=== PATIENT | female | born 1945 | race Caucasian/White ===

== ENCOUNTER → 2016-09-06 | Outpatient (CLI) | payer MEDICARE | END | disposition home or self-care (01) | LOC: NM 12:27 | PROVIDERS: ATTEND Internal Medicine Pulmonary Disease | DX: R30.0 Dysuria (principal) | CPT/HCPCS: 93017 ==

== ENCOUNTER → 2018-07-24 | Outpatient (CLI) | payer MEDICARE, BC ==
--- NOTE | 2018-07-24 17:58 | KCIC ---
MRI of the cervical spine without contrast 07/24/2018 CLINICAL HISTORY: Neck pain which radiates down the right arm. Right arm numbness for the last year. TECHNIQUE: Unenhanced T1-weighted and T2-weighted sagittal and axial and inversion recovery sagittal images of the lumbar spine were obtained. FINDINGS: Mild lateral curvature of the cervical spine is seen convex to the right. There is straightening of the normal cervical lordosis. Degenerative signal changes are seen involving all of the disks of the cervical spine. Degenerative signal changes are seen within the marrow surrounding these discs. Loss of height of the C3-4, C4-5 and C5-6 discs is noted. No area of abnormal signal intensity is seen involving the cervical spinal cord. At the C2-3 disc space there is a minimal generalized disc bulge. Degenerative changes are seen involving the uncovertebral and facet joints bilaterally. These findings do not result in significant central spinal canal or neural foraminal stenosis. At the C3-4 disc space there is a mild to moderate generalized disc bulge. Degenerative changes are seen involving the uncovertebral and facet joints bilaterally. These findings efface the anterior CSF without resulting in significant central spinal canal stenosis. Mild to moderate bilateral neural foraminal stenosis is seen. At the C4-5 disc space is a mild generalized disc bulge. Degenerative changes are seen involving the uncovertebral and facet joints bilaterally. These findings do not result in significant central spinal canal stenosis. Mild to moderate right greater than left neural foraminal stenosis is seen. At the C5-6 disc space there is a mild to moderate generalized disc bulge. Degenerative changes are seen involving the uncovertebral and facet joints bilaterally. These findings efface the anterior CSF resulting in mild central spinal canal stenosis without evidence of cord impingement. Moderate bilateral neural foraminal stenosis is seen. At the C6-7 disc space there is a mild to moderate generalized disc bulge. This is eccentric to the right. Degenerative changes are seen involving the uncovertebral and facet joints, right greater than left. These findings result in mild central spinal canal stenosis without evidence of cord impingement. Moderate to severe right neural foraminal stenosis is seen. The left neural foramen is patent. At the C7-T1 disc space there is a minimal generalized disc bulge. Degenerative changes are seen involving the facet joints bilaterally. These findings do not result in significant central spinal canal or neural foraminal stenosis. IMPRESSION: Degenerative changes are seen throughout the cervical spine. These findings result in mild central spinal canal stenosis at C5-6 and C6-7 without evidence of cord impingement. Multilevel neural foraminal stenosis of varying severity is seen as discussed above. Electronically signed by: Kan Long MD (07/24/2018 5:55 PM) [facility]
== END | disposition home or self-care (01) ==
LOC: KCIC MRI 13:38
PROVIDERS: ATTEND Physical Medicine & Rehabilitation
DX: M47.22 Other spondylosis with radiculopathy, cervical region (principal); M48.02 Spinal stenosis, cervical region; M50.11 Cervical disc disorder with radiculopathy, high cervical region; M51.24 Other intervertebral disc displacement, thoracic region
CPT/HCPCS: 72141

== ENCOUNTER → 2018-08-03 | Outpatient (CLI) | payer MEDICARE, BC ==
[~2018-08-03] MED LIST: CRESTOR10 MG PO; ESTR0.3T PO; FLUO40CA2 PO; IOHEXOL 180 MG/ML 10 ML VIAL. ONE; METF500T16 PO; METH500T7 PO; MONT10TA49 PO; MULT1TAB52 PO; OMEP20CA10 PO; ZOLP10TA4 PO; methylPREDNISolone ACETATE 40 MG/ML VIAL. ONE; methylPREDNISolone ACETATE 80 MG/ML VIAL. ONE
--- NOTE | 2018-08-03 22:03 | PAIN ---
DATE OF SERVICE: 08/03/2018 INITIAL CONSULTATION FOR PAIN CLINIC CHIEF COMPLAINT: Neck and right upper extremity pain. HISTORY OF PRESENT ILLNESS: This is a 73-year-old female who presents with history of pain in the base of the neck and right upper extremity for about 1 year, worse over the past 2-3 months or so, increasing without any specific injury or action that she is aware of, just getting worse over time. The patient reports it is in the base of the neck, right upper extremity, radiates into the shoulder posteriorly, into the anterior clavicle region as well as the side of the neck on the right side and into the arm in the biceps and forearm, mostly with some numbness and tingling in the thumb. The patient reports it is becoming worse with time. She is getting easily fatigued in the right arm, not losing any motor function completely, but finding difficult to do fine motor movements as well with the right hand. The patient reports the pain is now constant, throbbing, shooting, changes during the day with activity, worse with repetitive motions, tingling, numbness, radiating to the arm as well and the hand and the thumb on the right side and aching. The patient did have an MRI scan of the cervical spine showing degenerative changes throughout with mild central spinal canal stenosis at C5-C6 and C6-C7 without evidence of cord impingement with degenerative changes involving the facet joints, right greater than left at C6-C7 and moderate to severe right neural foraminal stenosis seen at C6-C7 as well, has moderate bilateral neural foraminal stenosis at C5-C6. The patient rates her disability rate from 0 to 10, 10 being the worst, is a 5 with family and home responsibilities, recreation, social activity and self-care, 3 with occupation, 4 with sexual behavior and 3 with life support activities. The patient has had physical therapy in the past as well as chiropractic treatment and exercise and reports that the chiropractic told her that he did not wish to further treat her neck as it was not helping. She is doing some stretching and strengthening on her own from physical therapy as well. All these helped to only a mild to moderate extent. The patient reports easy fatigability again, but no complete motor loss in the upper extremity and no symptoms on the left side. PAST MEDICAL HISTORY: Significant for arthritis, dizziness, hypertension, type 2 diabetes, skin cancers. PAST SURGICAL HISTORY: Includes cataract extraction in the left eye, fractured jaw, hysterectomy, tubal ligation, cholecystectomy, tonsillectomy, ganglion cyst removed and left knee surgery. CURRENT MEDICATIONS: Include methocarbamol, multivitamins, montelukast, metformin, zolpidem, estrogen, omeprazole, Crestor and fluoxetine. ALLERGIES: THE PATIENT IS ALLERGIC TO CODEINE. FAMILY HISTORY: Significant for no known conditions or diseases. SOCIAL HISTORY: The patient drinks alcohol about 1 or 2 drinks a week. Does not use any tobacco and does not smoke. Does not use any illegal, illicit or recreational drugs. She is , lives with her spouse and lives locally in [place], [place]. REVIEW OF SYSTEMS: The patient's review of systems is positive for those items mentioned in history of present illness. All systems reviewed and otherwise negative. It is complete, full and well documented on the patient's chart. PHYSICAL EXAMINATION: VITAL SIGNS: The patient's blood pressure is 142/70, pulse 81, respirations 18, temperature is 98.3 degrees Fahrenheit. Height is 5 feet 2 inches, weight is 163 pounds. GENERAL: The patient is awake, alert, oriented, appropriate, very pleasant demeanor. HEENT: Shows normocephalic, atraumatic. Extraocular movements are intact and symmetrical. Oral cavity shows mucous membranes moist and pink. Dentition intact. NECK: Shows anterior throat supple without palpable lymphadenopathy noted. Swallow reflex symmetrical. CHEST: Shows normal on inspection. Breath sounds are clear to auscultation bilaterally. HEART: Shows S1, S2 clear. No murmurs auscultated. ABDOMEN: Obese, soft, nontender, nondistended. No palpable organomegaly is noted. No rebound or guarding demonstrated. BACK: Shows spine grossly in the midline, normal appearing cervical lordotic curvature, thoracic kyphotic curvature and lumbar lordotic curvature. Cervical paraspinous muscle shows symmetrical on inspection, with palpation shows some moderate tenderness diffusely in the inferior aspect of the cervical paraspinous musculature, also into the right trapezius as well as even some tenderness into the right strap muscles, not on the left. The patient has good rotational motion with some moderate guarding with right lateral rotation, especially with extension of the cervical spine. The patient does report some pain in the base of the neck, but not radiating into the right arm, left is rotated past 45 degrees closer to 90 degrees without difficulty. Full forward flexion was performed without difficulty as well. The patient's upper extremities show deep tendon reflexes 2+ in the biceps and triceps tendons. Motor exam is 5/5 on the left and 4/5 on the right with k[place] maori strength, bicep and tricep flexion. Peripheral pulses are 2+ radial distribution. No peripheral edema is noted. Shoulder shrug is strong and intact without loss of strength on resistance, but some moderate pain reported in the right shoulder and into the lateral deltoid and bicep, this is true with abduction of the shoulder to 90 degrees as well, but no loss of strength on resistance. SKIN: Warm, dry, good turgor. No edema. No sores or rashes throughout. IMPRESSION: 1. This is a 73-year-old female with approximate 1-year history, worse over the past 3 months pain in the base of the neck, right upper extremity in a radicular fashion. 2. MRI scan of cervical spine as noted. 3. Hypertension. 4. Arthritis. 5. Diabetes. PLAN: Options were discussed with the patient including conservative medical management, physical therapy, interventional techniques and she would like to pursue with interventional techniques as she is doing physical therapy currently on her own. We discussed a cervical epidural steroid injection using descriptions as well as anatomical models to describe the procedure. Risks were then discussed including, but not limited to bleeding, infection, possibility of epidural hematoma and subsequent neurological compromise, dural puncture, headaches, spinal cord and/or nerve damage, side effects of steroid medication and poor results regarding pain control. The patient understands and wished to proceed. The patient will return to the clinic in approximately 2 weeks for followup, was counseled as to return appointment, activity level and side effects to be aware of. DIAGNOSES: Cervical radiculopathy with cervical degenerative disk disease and cervical spinal stenosis. PROCEDURE: Cervical epidural steroid injection with translaminar approach at C6-C7 level using C-arm fluoroscopic guidance under sterile prep and drape using local anesthetic. MEDICATION INJECTED: A total of 120 mg Depo-Medrol plus 5 mL of preservative-free normal saline and 2 mL of Isovue for contrast. CONDITION ON DISCHARGE: Stable. The patient tolerated the procedure well, had no complications. THOM N. UP, MD DR: GUILLERMINA/imtiaz JOB#: [id number] / [id number] JULIA Olson MD
== END ==
LOC: PNCL 08:36
PROVIDERS: ATTEND Anesthesiology
DX: M50.123 Cervical disc disorder at C6-C7 level with radiculopathy (principal); M48.02 Spinal stenosis, cervical region; E11.9 Type 2 diabetes mellitus without complications; I10 Essential (primary) hypertension; Z85.828 Personal history of other malignant neoplasm of skin; Z90.49 Acquired absence of other specified parts of digestive tract; Z90.710 Acquired absence of both cervix and uterus; Z98.51 Tubal ligation status; Z98.890 Other specified postprocedural states; Z98.42 Cataract extraction status, left eye; Z88.5 Allergy status to narcotic agent; Z72.89 Other problems related to lifestyle
CPT/HCPCS: 62321; J1030; J1040; Q9965

== ENCOUNTER → 2018-08-22 | Outpatient (CLI) | payer MEDICARE, BC ==
--- NOTE | 2018-08-22 16:20 | PAIN ---
DATE OF SERVICE: 08/22/2018 DIAGNOSES: Cervical radiculopathy with cervical degenerative disk disease and cervical spinal stenosis. HISTORY OF PRESENT ILLNESS: The patient is a 73-year-old female who returns for followup status post cervical epidural steroid injection x 1. The patient reports 50% improvement in the neck and right upper extremity. The patient reports increasing her activity with greater ease and comfort, sleeping much better at night, doing household activity with greater ease as well. Still some significant pain in the base of the neck and right shoulder, but doing much better in the arm. The patient reports it is tingling, dull pain, also some dull, sharp pains in the base of the neck as well. The patient reports it is 8 on a scale of 10 at its worst, 4 on average and 3 at its least and is a 3 today. The patient reports no new motor or sensory deficits, no new bowel or bladder incontinence or other complaints. PHYSICAL EXAMINATION: VITAL SIGNS: The patient's blood pressure is 112/65, pulse 75, respirations 16, temperature 98.3 degrees Fahrenheit, and weight 163 pounds. GENERAL: The patient is awake, alert, oriented, appropriate, very pleasant demeanor. HEENT: Head shows normocephalic, atraumatic. Extraocular movements are intact and symmetrical. Oral cavity: Mucous membranes are moist and pink. Dentition is intact. NECK: Shows anterior throat supple without palpable lymphadenopathy noted. Swallow reflex symmetrical. CHEST: Shows normal with inspection. Breath sounds clear to auscultation bilaterally. HEART: Shows S1, S2 clear. No murmurs auscultated. ABDOMEN: Soft, nontender and nondistended. No palpable organomegaly is noted. No rebound or guarding demonstrated.. BACK: Shows spine grossly in the midline. Cervical paraspinous muscle shows symmetrical on inspection and palpation shows some moderate tenderness diffusely in the cervical paraspinous muscles, but normal in the upper than the middle and lower distribution. The patient has good rotational motion of cervical spine, both laterally as well as extension and flexion without difficulty. EXTREMITIES: Upper extremities show deep tendon reflexes 2+ in the biceps and triceps tendons. Motor exam is approximately 4 on a scale of 5 on the left and 4/5 on the right. Client Support Professional strength, bicep and tricep flexion were intact. Peripheral pulses are 2+ in radial distribution. No peripheral edema is noted bilaterally. Options were discussed with the patient. The patient's old chart was reviewed as her current medication regimen updated. Current review of systems updated today as well. We will proceed with a second in the series of cervical epidural steroid injection today with fluoroscopic guidance. Risks were again discussed including, but not limited to bleeding, infection, possibility of epidural hematoma and subsequent neurological compromise, dural puncture, headaches, spinal cord and/or nerve damage, side effects of steroid medication and poor results regarding pain control. The patient understands and wished to proceed. The patient will return to clinic in approximately 2 weeks for followup. She was counseled as to return appointment, activity level and side effects to be aware of. DIAGNOSES: Cervical radiculopathy with cervical degenerative disk disease and cervical spine stenosis PROCEDURE: Cervical epidural steroid injection, translaminar approach C6-C7 level using C-arm fluoroscopic guidance under sterile prep and drape using local anesthetic. MEDICATION INJECTED: A total of 120 mg Depo-Medrol plus 5 mL of preservative-free normal saline and 2 mL of Isovue for contrast. CONDITION AT DISCHARGE: Stable. The patient tolerated procedure well, had no complications. THOM UP MD DR: GUILLERMINA/imtiaz JOB#: [id number] / [id number]
== END ==
LOC: PNCL 08:19
PROVIDERS: ATTEND Anesthesiology
DX: M50.323 Other cervical disc degeneration at C6-C7 level (principal); M48.02 Spinal stenosis, cervical region
CPT/HCPCS: 62321; J1030; J1040; Q9965; 62323

== ENCOUNTER → 2018-09-13 | Outpatient (CLI) | payer MEDICARE, BC ==
--- NOTE | 2018-09-13 11:58 | PAIN ---
DATE OF SERVICE: 09/13/2018 PROGRESS NOTE FOR PAIN CLINIC DIAGNOSES: Cervical radiculopathy with cervical degenerative disk disease and cervical spinal stenosis. HISTORY OF PRESENT ILLNESS: The patient is a 73-year-old female, who returns for followup status post cervical steroid injection x 2. The patient reports approximately 50% better overall in the neck and the right upper extremity. The patient reports still some pain in the base of neck and shoulder, worse with lying on her right side when she is sleeping, increased activity, raising her hand above her head on her right side. The patient reports the pain is a 4 on a scale of 10 at its worst in the past week, 3 on average, and a 2 at its least, and a 2 today. The patient reports it is a dull and tingling at times in the hand on the right side, but mainly just in the neck and shoulder. The patient reports that generally not awakening her from sleep too often, but sometimes it will, as she is increasing her activities, work, household activities, distance walking, driving distances as well and sleeping somewhat better. The patient reports no new motor or sensory deficits, no new changes. PHYSICAL EXAMINATION: VITAL SIGNS: The patient's blood pressure 135/78, pulse 96, respirations are 18, temperature 98.6 degrees Fahrenheit, height is 5 feet 2 inches and weight is 164 pounds. GENERAL: The patient is awake, alert, oriented, appropriate, very pleasant demeanor. HEENT: Head shows normocephalic, atraumatic. Extraocular movements are intact and symmetrical. Oral cavity: Mucous membranes are moist and pink; dentition is intact. NECK: Shows anterior throat supple without palpable lymphadenopathy noted. Swallow reflex is symmetrical. CHEST: Shows normal on inspection. Breath sounds are clear to auscultation bilaterally. HEART: Shows S1, S2 clear. No murmurs auscultated. ABDOMEN: Soft, nontender and nondistended. No palpable organomegaly is noted. No rebound or guarding demonstrated. BACK: Shows spine grossly in the midline. Normal-appearing thoracic kyphosis and cervical lordotic curvature. Cervical paraspinal muscles shows symmetrical on inspection with palpation, shows some moderate tenderness diffusely in the inferior aspect of the cervical paraspinous musculature as well as into the superior medial right trapezius, left side is nontender, both are supple; however, the patient has good rotational motion of cervical spine, both laterally, it is greater than 45 degrees, as well as extension and flexion without significant difficulty or pain reported. EXTREMITIES: The patient's upper extremities show deep tendon reflexes are 2+ in the biceps and triceps tendons. Motor exam is strong with 5/5 on the left and 4/5 on the right with skid road worker strength. Peripheral pulses are 2+, radial distribution. No peripheral edema is noted. Options were discussed with the patient. The patient's old chart was reviewed as her current medication regimen updated. Current review of systems updated today as well. We will proceed with third cervical epidural steroid injection today with fluoroscopic guidance. Risks were again discussed including, but not limited to bleeding, infection, possibility of epidural hematoma, subsequent neurologic compromise, dural puncture, headaches, spinal cord and/or nerve damage, side effects of steroid medications and poor results regarding pain control. The patient understands and wishes to proceed. The patient will return to clinic in approximately 2 weeks for followup, was counseled as to return appointment, activity level and side effects to be aware of. DIAGNOSES: Cervical radiculopathy with cervical spinal stenosis and cervical degenerative disk disease. PROCEDURE: Cervical epidural steroid injection, translaminar approach, at the C6-C7 level using C-arm fluoroscopic guidance under sterile prep and drape using local anesthetic. MEDICATION INJECTED: A total of 120 mg Depo-Medrol plus 5 mL of preservative-free normal saline and 2 mL of Isovue for contrast. CONDITION AT DISCHARGE: Stable. The patient tolerated the procedure well, had no complications. THOM UP MD DR: GUILLERMINA/imtiaz JOB#: [id number] / [id number]
== END ==
LOC: PNCL 08:24
PROVIDERS: ATTEND Anesthesiology
DX: M50.123 Cervical disc disorder at C6-C7 level with radiculopathy (principal); M48.02 Spinal stenosis, cervical region
CPT/HCPCS: 62321; J1030; J1040; Q9965

== ENCOUNTER → 2019-02-27 | Outpatient (CLI) | payer MEDICARE, BC ==
[~2019-02-27] MED LIST changes: +MECL-75 PO; -OMEP20CA10 PO; +OMEP20CA16 PO
--- NOTE | 2019-02-27 10:56 | PAIN ---
DATE OF SERVICE: 02/27/2019 PROGRESS NOTE FOR PAIN CLINIC DIAGNOSES: Cervical radiculopathy with cervical spinal stenosis and cervical degenerative disk disease. HISTORY OF PRESENT ILLNESS: The patient is a 73-year-old female who returns for followup status post cervical epidural steroid injections x 3, most recently 09/13/2018. The patient had about 70% improvement and reports that her vertigo is better. She was increasing her activity with greater ease and comfort, walking greater distances, able to use her upper extremities with greater ease and comfort, moving her neck with much more ease. The patient reports her pain now is returning over the past for about 1 month. It ranges 8 on a scale of 10 at its worst over the past week, 6 on average, 3 at its least and is a 3 today. The patient reports it is aching and dull, becoming more constant in the base of neck and shoulders into the upper extremities, right equal to left essentially. The patient reports no new motor or sensory deficits, no new bowel or bladder incontinence. PHYSICAL EXAMINATION: VITAL SIGNS: The patient's blood pressure 141/72, pulse 81, respirations are 16, temperature 97.9 degrees Fahrenheit, height is 5 feet 3 inches, weight is 164 pounds. GENERAL: The patient is awake, alert, oriented, appropriate, very pleasant demeanor. The patient is accompanied by her spouse. HEENT: Shows normocephalic, atraumatic. Extraocular movements are intact and symmetrical. Oral cavity: Mucous membranes are moist and pink. Dentition is intact. NECK: Shows anterior throat supple without palpable lymphadenopathy noted. Swallow reflex symmetrical. CHEST: Shows normal on inspection. Breath sounds are clear bilaterally. HEART: Shows S1, S2 clear. ABDOMEN: Soft, nontender, nondistended. BACK: Shows spine grossly in the midline. Cervical paraspinous muscle shows symmetrical on inspection with normal cervical lordotic curvature, with palpation shows some moderate tenderness inferiorly only in the inferior aspect of the cervical paraspinous musculature and into the superior medial trapezius, but only diffusely without significant radiation. The patient shows some limited and guarded rotational motion both laterally greater than 45 degrees as well as extension and flexion, all guarded and rotation, but performed without significant limitation. EXTREMITIES: The patient's upper extremities show deep tendon reflexes 2+ in the biceps, triceps tendons. Motor exam is approximately 5 on a scale of 5 on the left and 4/5 on the right with electric welder strength, bicep and tricep flexion. Peripheral pulses are 2+ radial distribution. No peripheral edema is noted bilaterally. Options were discussed with the patient. The patient's old chart was reviewed as her current medication regimen updated. Current review of systems updated today as well. We will proceed with a cervical epidural steroid injection, the first in this series today with fluoroscopic guidance. Risks were again discussed including, but not limited to bleeding, infection, possibility of epidural hematoma, subsequent neurological compromise, dural puncture, headaches, spinal cord and/or nerve damage, side effects of steroid medication and poor results regarding pain control. The patient understands and wished to proceed. The patient will return to clinic in approximately 2 weeks for followup, was counseled on return appointment, activity level and side effects to be aware of. DIAGNOSES: Cervical radiculopathy with cervical spinal stenosis and cervical degenerative disk disease. PROCEDURE: Cervical epidural steroid injection, translaminar approach at the C6-C7 level using C-arm fluoroscopic guidance under sterile prep and drape using local anesthetic. MEDICATION INJECTED: A total of 120 mg Depo-Medrol plus 5 mL of preservative-free normal saline and 2 mL of contrast. CONDITION AT DISCHARGE: Stable. The patient tolerated the procedure well, had no complications. THOM UP MD DR: GUILLERMINA/imtiaz JOB#: [id number] / [id number]
== END ==
LOC: PNCL 08:20
PROVIDERS: ATTEND Anesthesiology
DX: M50.123 Cervical disc disorder at C6-C7 level with radiculopathy (principal); M48.02 Spinal stenosis, cervical region
CPT/HCPCS: 62321; J1030; J1040; Q9965

== ENCOUNTER → 2019-03-25 | Outpatient (CLI) | payer MEDICARE, BC ==
--- NOTE | 2019-03-25 12:26 | PAIN ---
DATE OF SERVICE: 03/25/2019 PROGRESS NOTE FOR PAIN CLINIC DIAGNOSES: Cervical radiculopathy with cervical spinal stenosis and cervical degenerative disk disease. HISTORY OF PRESENT ILLNESS: The patient is a 73-year-old female who returns for followup status post cervical epidural steroid injection x 1. The patient reports about 50% improvement overall with about 100% for the first 2 days, and the pain began to return slowly and gradually in the base of the neck and bilateral upper extremities, more on the right than the left. The patient reports it is back in the right arm, now posterior deltoid, posterior triceps as well as some tingling in the hand. The patient reports it is an 8 on a scale of 10 at its worst over the past week, 5 on average and 3 at its least and is a 3 today. The patient reports it is aching, sharp, stabbing, sometimes constant with activity, worse with repetitive motions or lifting items with the right arm. The patient reports no new motor or sensory deficits or other changes. The patient reports it is awakening her from sleep again. Initially, she was doing much better with distance walking, doing household activities with greater ease and comfort, sleeping better, now is beginning to awaken her from sleep at about every 6 hours or so. PHYSICAL EXAMINATION: VITAL SIGNS: The patient's blood pressure is 116/69, pulse 83, respirations 16, temperature 98.9 degrees Fahrenheit, weight is 163 pounds. GENERAL: The patient is awake, alert, oriented, appropriate, very pleasant demeanor. HEENT: Shows normocephalic, atraumatic. Extraocular movements are intact and symmetrical. Oral cavity: Mucous membranes moist and pink. Dentition is intact. NECK: Shows anterior throat supple without palpable lymphadenopathy noted. Swallow reflex symmetrical. CHEST: Shows normal on inspection. Breath sounds are clear bilaterally. HEART: Shows S1, S2 clear. No murmurs auscultated. ABDOMEN: Soft, nontender, nondistended. BACK: Shows spine grossly in the midline, normal-appearing cervical lordotic curvature, thoracic kyphotic curvature. Cervical paraspinous muscle shows symmetrical on inspection, with palpation shows some moderate tenderness diffusely bilaterally but only diffusely without significant radiation. The patient has good rotational motion of the cervical spine, both laterally as well as extension and flexion without significant pain reported. EXTREMITIES: Upper extremities show deep tendon reflexes 2+ in the biceps and triceps tendons. Motor exam is 5/5 with supervisor international reservations strength in the left and 4/5 on the right, but intact. Peripheral pulses are 2+ radial. No peripheral edema is noted. Options were discussed with the patient. The patient's old chart was reviewed as her current medication regimen updated. Current review of systems updated today as well. We will proceed with a second cervical epidural steroid injection today with fluoroscopic guidance. Risks were again discussed including, but not limited to bleeding, infection, possibility of epidural hematoma, subsequent neurologic compromise, dural puncture, headaches, spinal cord and/or nerve damage, side effects of steroid medication and poor results regarding pain control. The patient understands and wished to proceed. The patient will return to clinic in approximately 2 weeks for followup. She was counseled on return appointment, activity level, and side effects to be aware of. DIAGNOSES: Cervical radiculopathy with cervical spinal stenosis and cervical degenerative disk disease. PROCEDURE: Cervical epidural steroid injection, translaminar approach C6-C7 level using C-arm fluoroscopic guidance under sterile prep and drape using local anesthetic. MEDICATION INJECTED: A total of 120 mg Depo-Medrol plus 5 mL of preservative-free normal saline and 2 mL of contrast. CONDITION AT DISCHARGE: Stable. The patient tolerated the procedure well, had no complications. THOM UP MD DR: GUILLERMINA/imtiaz JOB#: [id number] / [id number]
== END | disposition home or self-care (01) ==
LOC: PNCL 10:52
PROVIDERS: ATTEND Anesthesiology
DX: M50.123 Cervical disc disorder at C6-C7 level with radiculopathy (principal); M48.02 Spinal stenosis, cervical region; Z98.890 Other specified postprocedural states; Z88.6 Allergy status to analgesic agent
CPT/HCPCS: 62321; J1030; J1040; Q9965

== ENCOUNTER → 2019-04-08 | Outpatient (CLI) | payer MEDICARE, BC ==
[~2019-04-08] MED LIST changes: -IOHEXOL 180 MG/ML 10 ML VIAL. ONE; -methylPREDNISolone ACETATE 40 MG/ML VIAL. ONE; -methylPREDNISolone ACETATE 80 MG/ML VIAL. ONE
--- NOTE | 2019-04-09 02:38 | PAIN ---
DATE OF SERVICE: 04/08/2019 PROGRESS NOTE FOR PAIN CLINIC DIAGNOSES: Cervical radiculopathy with cervical degenerative disk disease and cervical spinal stenosis. HISTORY OF PRESENT ILLNESS: This is a 73-year-old female who returns for followup status post cervical epidural steroid injections x 2. The patient reports she has done very well, about 75% improvement overall with last 2 injections in the neck and right upper extremity. The patient reports no new motor or sensory deficits or other complaints with increased activity, with greater ease and comfort, sleeping better at night and is overall very pleased with her progress thus far. The patient reports the pain is returning slightly, but only very slightly in the base of the neck. The patient reports it is aching, sharp, tingling, radiating, on and off in intensity. The patient reports it is a 6 on a scale of 10 at its worst over the past week, 3 on average, 2 at its least and is a 2 today. The patient reports no new changes, no new motor or sensory deficits. PHYSICAL EXAMINATION: VITAL SIGNS: The patient's blood pressure 126/67, pulse 91, respirations 16, temperature 99.0 degrees Fahrenheit, weight is 159 pounds. GENERAL: The patient is awake, alert, oriented, appropriate, very pleasant demeanor. HEENT: Shows normocephalic, atraumatic. Extraocular movements are intact and symmetrical. Oral cavity: Mucous membranes moist and pink. Dentition is intact. NECK: Shows anterior throat supple without palpable lymphadenopathy noted. Swallow reflex symmetrical. CHEST: Shows normal on inspection. Breath sounds are clear bilaterally. HEART: Shows S1, S2 clear. No murmurs auscultated. ABDOMEN: Soft, nontender, nondistended. BACK: Shows spine grossly in the midline. Cervical paraspinous muscle shows symmetrical on inspection with normal cervical lordotic curvature and with palpation shows some mild tenderness in the inferior aspect of the cervical paraspinous musculature, slightly more on the right than the left, but present bilaterally. The patient shows good rotational motion of cervical spine, both laterally as well as extension and flexion without exacerbation of pain. EXTREMITIES: Upper extremities show deep tendon reflexes 2+ in the biceps, triceps tendons. Motor exam is approximately 4 on a scale of 5 with right opto mechanical engineer strength and 5/5 on the left. Biceps and triceps flexion is likewise 4/5 right, 5/5 left. Peripheral pulses are 2+ in radial distribution. No peripheral edema is noted bilaterally. PLAN: Options were discussed with the patient. The patient's old chart was reviewed as her current medication regimen updated. Current review of systems updated today as well and if she is doing quite well after second injection, she would like to hold on any further injections at this time. We will give the patient a prescription for Medrol Dosepak to be filled later on if the pain begins to return. The patient was given instruction as well as side effects to be aware of with the medication. We will follow up at this time on as needed basis. THOM UP MD DR: GUILLERMINA/imtiaz JOB#: [id number] / [id number]
== END | disposition home or self-care (01) ==
LOC: PNCL 13:51
PROVIDERS: ATTEND Anesthesiology
DX: M48.02 Spinal stenosis, cervical region (principal); M50.10 Cervical disc disorder with radiculopathy, unspecified cervical region
CPT/HCPCS: G0463

== ENCOUNTER → 2020-07-15 | Outpatient (CLI) | payer MEDICARE, BC ==
[~2020-07-15] MED LIST changes: +METH-561 PO; -METH500T7 PO; +MULT-445 PO; -MULT1TAB52 PO
--- NOTE | 2020-07-15 12:52 | KCIC ---
EXAM: DUAL ENERGY X-RAY ABSORPTIOMETRY (DEXA). HISTORY: Postmenopausal screening. FINDINGS: The lowest measured T-score is -0.5 in the left hip, based on a bone mineral density of 0.8 81 g/cm^2. Refer to the worksheets for full detail. No comparison examinations are available. IMPRESSION: 1. Normal. Bone mineral density yields a T-score of -1.0 or greater. Fracture risk is low. 2. FRAX report: Not calculated. METHODOLOGY: Dual energy x-ray absorptiometry was performed to measure bone mineral density. The foll owing analysis is based on the 2019 Official Positions of the International Society for Clinical Dens itometry: Measurements of the hips and the average of L1-L4 are preferred. When the spine and/or hip cannot be feasibly measured or interpreted, or in the setting of hyperparathyroidism, distal radial bone minera l density may be measured. The lumbar spine T-score is based on the average bone mineral density of L1-L4. In the setting of art ifact or anatomic abnormality, some lumbar levels may be excluded, and the remaining levels used for calculation. A single lumbar level is not used for diagnosis, and if only a single level is available for assessment, another anatomic site will be used to assign a diagnosis. The hip T-score is based on the bone mineral density measurement of the femoral neck or total proxima l femur of either side, whichever is lowest. Bilateral mean values are not used for diagnosis. The forearm T-score is derived from 33% of the distal radius of the nondominant forearm. Electronically signed by: Lubna Casarez MD (07/15/2020 12:50 PM) [id number]
== END ==
LOC: KCIC DEXA 10:20
PROVIDERS: ATTEND Family Medicine
DX: M81.0 Age-related osteoporosis without current pathological fracture (principal); M89.9 Disorder of bone, unspecified
CPT/HCPCS: 77080